=== PATIENT | male | born 1975 | race Two or more races ===

== ENCOUNTER 2022-11-20 09:03 | Emergency (ER) | payer SELFPAY ==
[2022-11-20] MEDS ORDERED: Aspirin 81 MG Tab.Chew PO ONE (09:28)
[2022-11-20 09:53] LABS: APPEARANCE,URINE CLEAR; BILIRUBIN,URINE NEGATIVE (NEGATIVE); COLOR,URINE YELLOW; GLUCOSE,URINE NEGATIVE (NEGATIVE); KETONES,URINE NEGATIVE (NEGATIVE); LEUKOCYTE ESTERASE,URINE NEGATIVE (NEGATIVE); NITRITE,URINE NEGATIVE (NEGATIVE); OCCULT BLOOD,URINE NEGATIVE (NEGATIVE); PROTEIN,URINE 100 mg/dL (NEGATIVE); UROBILINOGEN,URINE 0.2 EU/dL (<2.0)
[2022-11-20 09:57] LABS: A/G RATIO 1.1 (0.9-1.6); ALBUMIN 3.2 g/dL (3.4-5.0); BILIRUBIN TOTAL 0.5 mg/dL (0.2-1.0); CALCIUM 8.8 mg/dL (8.5-10.1); CARBON DIOXIDE,CO2 27.7 mmol/L (21.0-32.0); EST CRCL DRUG DOSING (CG) 83.29 mL/min; POTASSIUM,K 4.9 mmol/L (3.5-5.1); PROTEIN TOTAL,TP 6.2 g/dL (6.4-8.2)
[2022-11-20 10:08] LABS: BACTERIA,URINE RARE (NEGATIVE); EPITHELIAL CELLS,URINE MODERATE (NONE-FEW); MUCUS,URINE FEW (NONE-MOD); RBC,URINE 0-2 (0-2/HPF); SQUAMOUS EPITHELIAL CELLS,UR MODERATE; WBC,URINE NONE SEEN (0-5/HPF)
[2022-11-20] MEDS ORDERED: Lisinopril/Hydrochlorothiazide 10-12.5 MG Tab PO ONE (10:37)
== END 2022-11-21 07:49 | disposition home or self-care (01) ==
LOC: MW.ED 09:03 → EDBD 09:03 → MW.ED 11-21 07:49
DX: I10 Essential (primary) hypertension (principal); N28.9 Disorder of kidney and ureter, unspecified; Z79.899 Other long term (current) drug therapy
CPT/HCPCS: 36415; 80053; 81001; 84484; 93005; 99284; A9270; 93010; 99283

== ENCOUNTER 2024-12-06 23:03 | Emergency (ER) | payer SELFPAY ==
[2024-12-06] MEDS: Albuterol 0.083% 2.5 MG/3 ML Neb Soln NEB ONE (23:40)
== END 2024-12-07 00:19 | disposition home or self-care (01) ==
LOC: MW.ED 23:03
DX: J20.9 Acute bronchitis, unspecified (principal)
CPT/HCPCS: 71045; 99285; A9270; J7613; J7620; 99283